=== PATIENT | male | born 1945 | race Caucasian/White ===

== ENCOUNTER 2016-07-30 00:50 | Inpatient (IN) | payer OTHER ==
--- NOTE | ~2016-07-30 | CN ---
Consultation Report [place] [id number] [facility] [place]. [address] NAME: KERI ODOM : [birth year] STATUS : ADM Shyla PAT#: [id number] AGE: 71 ADM/REG DATE : 07/30/16 MR#: [id number] REPORT SERV DATE: 07/30/16 DICTATED BY: DIEGO MONTGOMERY DATE: 07/30/16 REPORT STATUS : Draft TRANSCRIBED BY: MODEsther DATE: 07/30/16 CARDIOLOGY CONSULTATION DATE OF CONSULTATION: HISTORY OF PRESENT ILLNESS: The patient is a 71-year-old white male, with a history of coronary artery bypass surgery at [facility] greater than 10 years ago. The patient now presents with a history of unexplained onset of profound weakness and dizziness. He had associated shortness of breath, but states he also has COPD and has chronic shortness of breath. Troponin is 0.2. EKG shows sinus rhythm, with right bundle-branch block, and left anterior fascicular block, as well as nonspecific ST-T changes. PAST MEDICAL HISTORY: Remarkable for coronary artery disease with remote bypass surgery, essential hypertension, hyperlipidemia, COPD, and type 2 diabetes. SOCIAL HISTORY: The patient quit smoking 20 years ago. FAMILY HISTORY: Positive for coronary artery disease. REVIEW OF SYSTEMS: The patient has nonproductive cough. He denies nausea, vomiting, diarrhea, or dysuria. PHYSICAL EXAMINATION: GENERAL: Currently, the patient is comfortable, in no acute distress. HEENT: Unremarkable. NECK: Shows no jugular venous distention with good carotid upstroke. CHEST: Clear. CARDIOVASCULAR: The PMI is lateral to midclavicular line. S1 is normal. S2 is narrowly split. No gallop is present. ABDOMEN: Soft and nontender with normal bowel sounds. EXTREMITIES: Show no cyanosis, clubbing, or edema. SKIN: Warm and dry with no pallor or icterus. NEURO/PSYCH: The patient is oriented x3 with appropriate affect. LABORATORY DATA: Creatinine is 1.0, potassium 3.6, and hematocrit is 41.6. IMPRESSION: 1. Subendocardial myocardial infarction. 2. Essential hypertension. 3. Hyperlipidemia. 4. Chronic obstructive pulmonary disease. 5. Type 2 diabetes. RECOMMENDATION: Consultation Report [address] [place]. [address] NAME: KERI ODOM DOB: [birth year] STATUS : ADM Shyla PAT#: [id number] AGE: 71 ADM/REG DATE : 07/30/16 MR#: [id number] REPORT SERV DATE: 07/30/16 DICTATED BY: DIEGO MONTGOMERY DATE: 07/30/16 REPORT STATUS : Draft TRANSCRIBED BY: ANDRE DATE: 07/30/16 1. Continue present medications. 2. Plan cardiac catheterization tomorrow per Dr. Null. Thank you very much for this consultation. SARAH/ANDRE Diego Montgomery M.D., F.A.C.C. / [id number] CC: Mike Cardenas MIRANDA SWAFFORD Steven Austin, M.D., [facility]
--- NOTE | ~2016-07-30 | CN ---
Consultation Report [facility] [address] [place]. [address] NAME: KERI ODOM : [birth year] STATUS : ADM Shyla PAT#: [id number] AGE: 71 ADM/REG DATE : 07/30/16 MR#: [id number] REPORT SERV DATE: 07/30/16 DICTATED BY: DATE: REPORT STATUS : Draft TRANSCRIBED BY: MODL DATE: 07/30/16 NEUROLOGY CONSULTATION DATE OF CONSULTATION: 07/30/2016 REASON FOR CONSULTATION: Possible stroke. HISTORY OF PRESENT ILLNESS: This is a 71-year-old male who presented to [facility] as a transfer from [facility] secondary to vertigo symptoms. The patient's symptoms started on 07/29/2016 in the evening. There is a concern for acute ischemic stroke. As a result, the patient was transferred to [facility]. The patient described the symptom as unsteady. The patient reports difficulty moving bilateral lower extremities with bilateral lower extremity weakness. The patient denies any numbness and denies any diplopia. Denies any blurry vision and denies any dysarthria, dysphagia, or language difficulties. The patient denies similar symptoms in the past. Reports a mild headache, but not severe. The patient otherwise reports the symptoms resolved after several hours, shortly after morphine for pain. The patient denies any current symptom right now and denies any vertigo-type of symptoms and denies any lightheadedness prior to the hospitalization. The patient was noted to have chronic COPD with chronic cough that was steadily progressive, the patient recently about a week ago being prescribed with steroid as well as antibiotic. No recent fever, chills, nausea, vomiting, chest pain. Worsening shortness of breath was noted over the past two to four weeks. The patient denies any other symptoms or other changes in medication. PAST MEDICAL HISTORY: Significant for COPD, does not require home oxygen, as well as history of hypertension, hyperlipidemia. The patient at baseline was taking cholesterol medication, the name of it was unclear. The patient does have type 2 diabetes, non-insulin dependent; as well as coronary artery disease, status post previous coronary artery bypass surgery; and gastroesophageal reflux disease. REVIEW OF SYSTEMS: Negative, except for those mentioned in the HPI. ALLERGIES: THE PATIENT REPORTS ALLERGY TO CODEINE. SOCIAL HISTORY: The patient reports tobacco usage, but quit many, many years ago. Denies current alcohol usage and denies illicit drug usage. HOME MEDICATIONS: Consist of ProAir, Proventil, aspirin, Coreg, Cardura, Atrovent, lisinopril, Mobic, Singulair, Prilosec. The patient does take simvastatin at home. FAMILY HISTORY: At the time of evaluation, family history is significant for coronary artery disease as well as diabetes. Consultation Report [address] [place]. [address] NAME: KERI ODOM : [birth year] STATUS : ADM Shyla PAT#: [id number] AGE: 71 ADM/REG DATE : 07/30/16 MR#: [id number] REPORT SERV DATE: 07/30/16 DICTATED BY: DATE: REPORT STATUS : Draft TRANSCRIBED BY: ANDRE DATE: 07/30/16 PHYSICAL EXAMINATION: VITAL SIGNS: Overnight, the patient was noted to have vital signs with T-max of 98.2, heart rate of 69 to 79, respirations of 16 to 18, and blood pressure of 152 to 153 over 74 to 75. GENERAL: The patient is well developed, well nourished, in no acute distress. CARDIOVASCULAR: Regular rate and rhythm. No carotid bruits were otherwise auscultated. PULMONARY: Clear to auscultation bilaterally. NEUROLOGIC: Generally, the patient is alert, oriented to person, place, year, and month. Follows simple and two-step commands. No dysarthria. No aphasia. Intact registration and recall. Cranial nerves II through XII. Pupils equal, round, and reactive to light. Extraocular eye movement was noted to be intact. No nystagmus was seen. The patient denies diplopia with extraocular eye movement. Denies vertical sensation with eye movement. Decrease in hearing in bilateral ears was otherwise noted. The patient denies tinnitus. The patient was noted to have symmetrical facial sensation. Midline tongue. Normal palatal movement. Symmetrical facial expression. 5/5 bilateral upper and lower extremity strength. No pronator drift was noted. Normal qptizd-fy-nhdc examination without ataxia. Symmetrical sensation. Deep tendon reflex was 2+ throughout. Downgoing toes on bilateral plantar reflexes. Normal station, normal gait at the time of evaluation. LABORATORY STUDIES: Demonstrated INR of 1.1. Cholesterol of 120, HDL of 37, LDL of 57, triglycerides of 130. Hemoglobin A1c of 7.2. Free T4 of 1.12. Serum TSH of 2.02. MRI of the brain otherwise demonstrated no acute process. MRA of the head and neck demonstrated no significant carotid stenosis. IMPRESSION: Vertigo symptoms, resolved after several hours. MRI of the brain otherwise demonstrated no acute events. NIH Stroke Scale is currently zero. Concern for possible transient ischemic attack. We will continue aspirin. We will change the simvastatin to Lipitor 80 mg p.o. at bedtime. Echocardiogram is otherwise pending. No PT/OT secondary to no motor deficit. RECOMMENDATIONS: 1. Change the simvastatin to Lipitor 80 mg p.o. at bedtime. 2. Continue aspirin for now. 3. Echocardiogram pending. 4. No PT/OT secondary to minimal motor deficits. [facility]/MODL Cholo Gordon MD / [id number] Consultation Report [address] [address] NAME: KERI ODOM : [birth year] STATUS : ADM Shyla PAT#: [id number] AGE: 71 ADM/REG DATE : 07/30/16 MR#: [id number] REPORT SERV DATE: 07/30/16 DICTATED BY: DATE: REPORT STATUS : Draft TRANSCRIBED BY: MODL DATE: 07/30/16 CC: Mike Cardenas MIRANDA SWAFFORD
--- NOTE | ~2016-07-30 | OP ---
Record Of Operation [facility] [address] [place]. [address] NAME: KERI ODOM : 47 STATUS : ADM Shyla PAT#: [id number] AGE: 71 ADM/REG DATE : 07/30/16 MR#: [id number] REPORT SERV DATE: 07/31/16 DICTATED BY: DIEGO PORTILLO DATE: 07/31/16 REPORT STATUS : Draft TRANSCRIBED BY: MODL DATE: 07/31/16 DATE OF PROCEDURE: 07/31/2016 CARDIAC CATHETERIZATION REPORT INDICATION: History of previous bypass with elevated cardiac enzymes consistent with non-ST- segment elevation myocardial infarction. PROCEDURE: Left heart catheterization, coronary arteriography, left ventriculography, saphenous vein graft arteriography, left internal mammary arteriography. DESCRIPTION OF PROCEDURE: After informed consent was obtained, the patient was taken in a fasting state to the cardiac catheterization laboratory where he was prepped and draped in a sterile fashion. Conscious sedation was obtained using intravenous versed and fentanyl. The right inguinal region was anesthetized using 1% Xylocaine. The right femoral artery was then entered using a front wall approach and cannulated with a 6-Ivorian arterial sheath. A 6-Ivorian JR4 diagnostic catheter and a 6-Ivorian internal mammary artery catheter was used to engage the 3 saphenous vein grafts, the left internal mammary artery, and the mcgrath right coronary artery. Serial angiograms of each of these vessels were obtained. This catheter was then exchanged for a 6-Ivorian JL4 catheter which was used to engage the left main coronary artery. Serial angiograms of this vessel were obtained. This catheter was then exchanged for a 6-Ivorian angled pigtail catheter which was used across the aortic valve at which time a left ventriculogram was performed. The catheter was then withdrawn back across the aortic valve with no significant aortic transvalvular gradient. Results of the study are as follows: HEMODYNAMICS: Left ventricle 182/8 with end-diastolic pressure of 16 mmHg. Left ventricle 180/73 with mean pressure 112 mmHg. CORONARY ANATOMY: 1. Left Main coronary artery: The left main coronary artery arises normally from the left coronary cusp. This vessel is normal. 2. Left anterior descending artery: The left anterior descending artery arises normally from the left main coronary artery. This vessel is 100% occluded proximally. 3. The left internal mammary artery to the mid LAD is widely patent with CESAR-3 grade flow. 4. Ramus intermedius: The ramus intermedius arises normally from the left main coronary artery. This is a medium caliber vessel which has luminal irregularities to 20%. 5. Left circumflex artery: The left circumflex artery arises normally from the left main coronary artery. This vessel is 100% occluded after the takeoff of a small first obtuse marginal branch which is diffusely diseased to 50%. 6. The saphenous vein graft to the first obtuse marginal artery is occluded. 7. The saphenous vein graft to the third obtuse marginal artery is widely patent. 8. Right coronary artery: The right coronary artery arises normally from the right coronary cusp. This vessel was severely and diffusely diseased to 80%. 9. The saphenous vein graft to the posterior descending artery is widely patent. This Record Of Operation [facility] [address] [place]. [address] NAME: KERI ODOM : 47 STATUS : ADM Shyla PAT#: [id number] AGE: 71 ADM/REG DATE : 07/30/16 MR#: [id number] REPORT SERV DATE: 07/31/16 DICTATED BY: DIEGO PORTILLO DATE: 07/31/16 REPORT STATUS : Draft TRANSCRIBED BY: MODL DATE: 07/31/16 graft also fills the posterolateral artery. LEFT VENTRICULOGRAM: Left ventriculogram was performed which shows normal symmetric left ventricular contractility and an ejection fraction of 55% to 60%. There is mild mitral insufficiency. COMPLICATIONS: There were no apparent complications. CONCLUSIONS: 1. Severe mcgrath vessel coronary artery disease described above. 2. Widely patent saphenous vein graft to posterior descending artery-also fills posterolateral artery. 3. Saphenous vein graft to obtuse marginal artery (third) widely patent. 4. Saphenous vein graft to first obtuse marginal artery occluded. 5. ERWIN to mid LAD widely patent. 6. Preserved left ventricular systolic function. Mild mitral insufficiency. 7. No apparent complications. 8. Plans made for continued medical management including increase of Coreg followed by increased lisinopril as needed. SA/MODL Diego Portillo M.D., [facility] / [id number] CC: MD ANTOINE Ya II
--- NOTE | ~2016-07-30 | HP ---
History And Physical [place] [id number] [facility] [place]. [address] NAME: KERI PANTOJA SR : 47 STATUS : ADM Shyla PAT#: [id number] AGE: 71 ADM/REG DATE : 07/30/16 MR#: [id number] REPORT SERV DATE: 07/30/16 DICTATED BY: KELLY MARTINEZ DATE: 07/30/16 REPORT STATUS : Draft TRANSCRIBED BY: MODEsther DATE: 07/30/16 DATE OF ADMISSION: 07/30/2016 POINT OF ENTRY: Transferred from [facility] Emergency Department. PRIMARY CARE PHYSICIAN: Ginette Jade APN. PRIMARY SHOVEL MECHANIC: Diego Null M.D., [facility]. CHIEF COMPLAINT: Dizziness. HISTORY OF PRESENT ILLNESS: Mr. Pantoja is a 71-year-old gentleman with history of hypertension, hyperlipidemia, COPD as well as rtu-boppuio-uhknhxmmt diabetes mellitus type 2, who presents to the emergency department with reports of acute onset of dizziness and feeling unsteady on his feet. The patient states he has been in his usual state of health until about 6:00 p.m. Sunday evening, when while lying in his bed he developed the acute onset of dizziness. When asked to describe his dizziness, he states that he felt unsteady with some spinning sensation. He denies any associated nausea, vomiting, or vision changes or headache. When he got up to use the restroom he again fell unsteady on his feet and was stumbling around as if he were "drunk." He denied any recent hearing loss, tinnitus, or ear pressure. Denies any prior history of vertigo type symptoms. Denies any focal weakness, numbness, tingling, or other neurologic complaints. Initial evaluation in the emergency department was notable for a CT scan of the brain that was unremarkable. EKG shows a right bundle branch block, I do not have any prior for comparison. Labs notable for a sugar of 236, as well as a troponin of 0.20, and his blood pressure was mildly elevated between the 160s to 180s. The patient was subsequently transferred to [facility] for higher level of care. While at [facility] Emergency Department, he did complain of a headache that has since resolved, but he did get some morphine in the ER. The patient now states that his sensation of dizziness and feeling unsteady has significantly improved, and is now only noticeable with significant movement or ambulation. REVIEW OF SYSTEMS: Comprehensive review of system otherwise negative unless listed in history of present illness. Specifically, he denies any chest pain, chest pressure, shortness of breath, abdominal pain, nausea, vomiting, diarrhea, constipation, dysuria, lower extremity edema, melena, hematochezia, hemoptysis, or hematemesis. PREVIOUS MEDICAL HISTORY: 1. Hypertension. 2. Hyperlipidemia. History And Physical [address] [address] NAME: KERI PANTOJA SR : 47 STATUS : ADM Shyla PAT#: [id number] AGE: 71 ADM/REG DATE : 07/30/16 MR#: [id number] REPORT SERV DATE: 07/30/16 DICTATED BY: KELLY MARTINEZ DATE: 07/30/16 REPORT STATUS : Draft TRANSCRIBED BY: ANDRE DATE: 07/30/16 3. COPD, not on home oxygen. 4. Gastroesophageal reflux disease. 5. Coronary artery disease with prior coronary artery bypass grafting. 6. Enm-pdldjtk-imeqdjbka diabetes mellitus type 2. PAST SURGICAL HISTORY: 1. Cholecystectomy. 2. Coronary artery bypass grafting. 3. PCI. ALLERGIES: TO CODEINE. HOME MEDICATIONS: Pending at the time of dictation. SOCIAL HISTORY: He is a former smoker, quit about 20 years ago. Denies any alcohol or illicits. FAMILY MEDICAL HISTORY: Mother and father both with coronary artery disease. Siblings with diabetes and coronary artery disease. LABS AND IMAGING: All obtained from transfer records from [facility] Emergency Department. 1. White count is 8.2, hemoglobin is 13.8, hematocrit is 41.6, platelet count is 191, and INR 1.0. 2. Sodium is 139, potassium 3.6, chloride 98, carbon dioxide 33, BUN 30, creatinine 1.0, glucose is 236, calcium is 9.7, protein is 7.2, albumin is 4.3, bilirubin is 0.8, ALT is 30, AST 19, and alkaline phosphatase is 54. 3. Troponin 0.02. 4. CT scan of the brain shows no acute intracranial abnormality. Does show some age- appropriate changes. 5. EKG per my review shows normal sinus rhythm with a right bundle-branch block as well as a left anterior fascicular block, but no evidence of any acute ischemia or infarction. 6. Urine drug screen is negative. 7. Urinalysis: Spec gravity is 1.020 with no evidence of any infection. PHYSICAL EXAMINATION: VITAL SIGNS: Temperature is 96.8 degrees Fahrenheit, pulse is 69, respirations 18, saturating 98% on room air, and blood pressure is 185/88. GENERAL: The patient is awake and alert, in no acute distress. Resting comfortably in bed. He is a well-developed, well-nourished, elderly male. HEENT: Atraumatic and normocephalic. Moist mucous membranes. Pupils are equal, round, reactive to light and accommodation. Extraocular eye movements intact. No scleral icterus. NECK: No jugular venous distention. No carotid bruits. CARDIAC: Regular rate and rhythm. Does have a 2/6 systolic murmur best heard over the left lower sternal border. LUNGS: Clear to auscultation bilaterally. No wheezes, rhonchi, or crackles. Does have some prolonged respiratory phase as well as decreased breath sounds at bases. History And Physical [address] [address] NAME: KERI PANTOJA : 47 STATUS : ADM Shyla PAT#: [id number] AGE: 71 ADM/REG DATE : 07/30/16 MR#: [id number] REPORT SERV DATE: 07/30/16 DICTATED BY: KELLY MARTINEZ DATE: 07/30/16 REPORT STATUS : Draft TRANSCRIBED BY: ANDRE DATE: 07/30/16 ABDOMEN: Obese, soft, nontender, and nondistended with good bowel sounds. No rebound, guarding, or rigidity. EXTREMITIES: Warm and perfused. No cyanosis, clubbing, or edema. SKIN: Warm and dry. PSYCH: Affect appropriate. NEURO: Alert and oriented x3. Cranial nerves 2 through 12 grossly intact. Speech is normal. Gait is not assessed. Strength is 5/5 in bilateral upper and lower extremity. Cerebellar function intact with kgznlp-krlp-labugh and kcnr-xj-oxjg that was tested. The patient did have some worsening of his dizziness as well as some possible lateral beating nystagmus with lateral gaze deviation. ASSESSMENT AND PLAN: Mr. Pantoja is a 71-year-old gentleman with a history of diabetes, hypertension, coronary artery disease, who presents with acute onset of dizziness, ataxia, and disequilibrium concerning for possible acute cerebrovascular accident versus vertigo. PROBLEM LIST: 1. Dizziness with ataxia and disequilibrium concerning for possible vertigo versus acute CVA. 2. Elevated troponin level. 3. Qcn-bckrsio-wwvdapdvy diabetes mellitus 2 with hyperglycemia. 4. Dehydration. 5. Hypertension. 6. History of coronary artery disease. PLAN: 1. Possible acute stroke versus vertigo. CT scan of the brain was unremarkable. We will admit the patient to the Hospitalist Service per Neurology consultation as well as MRI/MRA in the morning. The patient states that his symptoms are going to improve now, so we will also order some p.r.n. meclizine to see if this helps should his symptoms return. We will place the patient on aspirin as well as statin and have Physical Therapy evaluate the patient given his reports of ataxia and disequilibrium. 2. Elevated troponin value. The patient denies any chest pain, or other anginal equivalents. EKG is nonischemic. He does have a right bundle branch block, we do not have any prior for comparison. We will try to obtain records from Dr. Null's office for comparison as well as trend out cardiac enzymes. 3. Wfi-fpqsphq-fjsvicorn diabetes mellitus 2 with hyperglycemia. Check hemoglobin A1c. Place on level 2 insulin sliding scale. 4. Hypertension. We will allow for some permissive hypertension at least overnight pending further evaluation for possible stroke. 5. History of chronic obstructive pulmonary disease. I do not appreciate any evidence of acute exacerbation at this time. We will continue to monitor. 6. DVT prophylaxis. Lovenox subcu. CODE STATUS: The patient wished to be full code. History And Physical [address] [address] NAME: KERI PANTOJA SR : 47 STATUS : ADM Shyla PAT#: [id number] AGE: 71 ADM/REG DATE : 07/30/16 MR#: [id number] REPORT SERV DATE: 07/30/16 DICTATED BY: KELLY MARTINEZ DATE: 07/30/16 REPORT STATUS : Draft TRANSCRIBED BY: ANDRE DATE: 07/30/16 JOBY/ANDRE Kelly Martinez MD / [id number] CC: Satish Acevedo M.D.
--- NOTE | ~2016-07-30 | DS ---
Discharge Summary [facility] [address] [place]. [address] NAME: KERI ODOM : 47 STATUS : DIS IN PAT#: [id number] AGE: 71 ADM/REG DATE : 07/30/16 MR#: [id number] REPORT SERV DATE: 08/02/16 DICTATED BY: KEANU ALDRICH DATE: 08/01/16 REPORT STATUS : Draft TRANSCRIBED BY: MODEsther DATE: 08/01/16 ADMISSION DATE: 07/30/2016 DISCHARGE DATE: 08/01/2016 REASON FOR ADMISSION: This is a 71-year-old male who had come in with a chief complaint of dizziness. In the emergency room, he was noted to have an elevated troponin of 0.20. DISCHARGE DIAGNOSES: 1. Vertigo, resolved, possible transient ischemic attack. 2. Atg-OQ-ochwahkvw myocardial infarction. 3. Multivessel coronary artery disease. 4. Diabetes type 2. 5. Hypertension. HOSPITAL COURSE: 1. Vertigo. The patient had come in with complaints of vertigo, coming into the hospital and then had also been found in the ER to have an elevated troponin level. The patient would have an echocardiogram performed which would show mild mitral insufficiency, aortic valve sclerosis, but no stenosis, left ventricular ejection fraction of 55% to 60%, and normal diastolic function. Due to the patient's elevated troponin levels which would trend up to 0.39, would have a cardiac cath performed by Dr. Null, had severe grayling vessel coronary artery disease, widely patent saphenous vein graft to posterior descending artery, also fills posterolateral artery, saphenous vein graft to obtuse marginal artery widely patent, saphenous vein graft to first obtuse marginal artery occluded, ERWIN to mid LAD widely patent, preserved LVEF mild mitral insufficiency, no apparent complications and recommendations for continuing medical management with increase of Coreg. The patient would also have brain imaging performed to rule out CVA. 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 He has had MRI and MRA of brain and neck. Neurology following the patient felt like as his symptoms resolved was possibly had a TIA and given his cardiac risk, started him on Plavix and wished for him to remain on Plavix, statin, and an aspirin leaving the hospital. DISCHARGE CONDITION: Stable. DISCHARGE MEDICATIONS: 1. Albuterol 2.5 mg inhaled four times a day. 2. Coreg 12.5 mg p.o. b.i.d. 3. Cardura 1 mg p.o. daily. 4. HCTZ 12.5 mg p.o. daily. 5. Lipitor 80 mg p.o. q.h.s. 6. Aspirin 81 mg p.o. daily. 7. Mobic 7.5 mg p.o. daily. 8. Omeprazole 20 mg p.o. daily. Discharge Summary [place] [id number] [facility] [place]. [address] NAME: KERI ODOM : 47 STATUS : DIS IN PAT#: [id number] AGE: 71 ADM/REG DATE : 07/30/16 MR#: [id number] REPORT SERV DATE: 08/02/16 DICTATED BY: KEANU ALDRICH DATE: 08/01/16 REPORT STATUS : Draft TRANSCRIBED BY: ANDRE DATE: 08/01/16 9. Singulair 10 mg p.o. daily. 10.Plavix 75 mg p.o. daily. 11.Lisinopril 40 mg p.o. daily. 12.Klonopin p.r.n. for systolic blood pressure greater than 160, diastolic greater than 90. DISCHARGE PLAN: The patient will be discharged home. Follow up with primary care, Ginette Jade, in one to two weeks [address] Dr. Null, Cardiology, in three to four weeks. DICTATED BY: FAMILIA Priest/ANDRE Keanu Aldrich APN / [id number] CC: Lc Marie M.D. MILAGROS,MD Diego Bobo M.D., [facility]
[2016-07-30] MEDS ORDERED: CEFT5 PO (03:45)
[2016-07-30] MEDS ORDERED: ALBUTEROL5 INH (03:55)
[2016-07-30] MEDS ORDERED: PROAIR HFA INH (03:58)
[2016-07-30] MEDS ORDERED: ATROVENTUD INH (04:01)
[2016-07-30] MEDS ORDERED: COREG12 PO (04:03)
[2016-07-30] MEDS ORDERED: CARDURA1 MG PO (04:04)
[2016-07-30] MEDS ORDERED: HYDROCHLOROT12.5 MG PO (04:07)
[2016-07-30] MEDS ORDERED: LIPITOR80 MG PO (04:08)
[2016-07-30] MEDS ORDERED: ASAB PO (04:09)
[2016-07-30] MEDS ORDERED: MOBIC7.5 PO (04:10)
[2016-07-30] MEDS ORDERED: PRILO PO (04:11)
[2016-07-30] MEDS ORDERED: SINGULAIR1 PO (04:12)
[2016-07-30 05:08] LABS: CPK 66 U/L (0-200)
[2016-07-30 05:09] LABS: TROPONIN I 0.39 NG/ML (<0.05)
[2016-07-30 06:49] LABS: INTERNATIONAL NORMAL RATI 1.1 UNITS (-); PARTIAL THROMBO TIME 26.9 SEC (22.5-37.2); PROTIME (NOT ORD) 13.8 SEC (12.0-14.5)
[2016-07-30 06:57] LABS: CHOL/HDL RATIO(NOT ORDER) 3.2 (0-5); CHOLESTEROL 120 MG/DL (< 200); FREE T4 1.12 NG/DL (0.76-1.46); HDL CHOLESTEROL 37 MG/DL (> 39); LDL CHOLESTEROL 57 MG/DL (< 130); NON-HDL CHOLESTEROL 83 MG/DL (< 160); TRIGLYCERIDE 130 MG/DL (< 150)
[2016-07-30 21:04] LABS: CK-MB 1.5 NG/ML; CPK 45 U/L (0-200); TROPONIN I 0.21 NG/ML (<0.05)
[2016-07-31 05:42] LABS: BASOPHILS 0.4 %; BASOPHILS ABSOLUTE 0.03 10/3/uL (0.0-0.16); EOSINOPHILS 3.8 %; EOSINOPHILS ABSOLUTE 0.26 10/3/uL (0.0-0.53); HEMATOCRIT 38.9 % (40.0-51.0); HEMOGLOBIN 13.1 g/dL (13.6-17.8); IMMATURE GRANULOCYTES 1.2 %; IMMATURE GRANULOCYTES ABSOLUTE 0.08 10/3/uL (0.0-0.11); LYMPHOCYTES 13.6 %; LYMPHOCYTES ABSOLUTE 0.92 10/3/uL (0.67-4.30); MANUAL DIFF NO %; MEAN CORPUS HGB CONC 33.7 g/dL (32.0-36.0); MEAN CORPUSCULAR HEMOGLOB 27.1 pg (26.0-34.0); MEAN CORPUSCULAR VOLUME 80.4 fL (80-100); MEAN PLATELET VOLUME 9.9 fL (9.2-13.0); MONOCYTES ABSOLUTE 0.27 10/3/uL (0.21-1.20); NEUTROPHILS ABSOLUTE 5.22 10/3/uL (2.02-8.40); PLATELET COUNT 136 10/3/uL (150-400); RBC DISTRIBUTION WIDTH 14.2 % (12.0-16.0); RED CELL COUNT 4.84 10/6/uL (4.7-6.1); WHITE BLOOD CELLS 6.8 10/3/uL (4.5-10.5)
[2016-07-31 05:56] LABS: BUN (BLOOD UREA NITROGEN) 20 MG/DL (6-23); CALCIUM, SERUM 9.4 MG/DL (8.5-10.4); CHLORIDE, SERUM 102 MMOL/L (96-112); CHOL/HDL RATIO(NOT ORDER) 3.2 (0-5); CHOLESTEROL 109 MG/DL (< 200); CO2 (CARBON DIOXIDE) 31 MMOL/L (24-34); CREATININE 0.85 MG/DL (0.70-1.30); GFR AFRICAN AMERICAN 102 ML/MIN (>=60); GFR NON AFRICAN AMERICAN 88 ML/MIN (>=60); GLUCOSE, SERUM 148 MG/DL (60-99); HDL CHOLESTEROL 34 MG/DL (> 39); LDL CHOLESTEROL 39 MG/DL (< 130); NON-HDL CHOLESTEROL 75 MG/DL (< 160); POTASSIUM, SERUM 3.3 MMOL/L (3.5-5.3); SODIUM, SERUM 136 MMOL/L (135-148)
[2016-07-31 05:58] LABS: TRIGLYCERIDE 180 MG/DL (< 150)
[2016-08-01] MEDS ORDERED: PLAVIX PO (14:14)
[2016-08-01] MEDS ORDERED: ZESTRIL40 MG PO (14:16)
[2016-08-01] MEDS ORDERED: CAT1 PO ×2 (14:21→14:24)
== END 2016-08-01 14:46 | disposition home or self-care (01) | DRG 282 ==
LOC: 1SO 00:50
PROVIDERS: Internal Medicine; Internal Medicine Interventional Cardiology
PROC: 4A023N7 Measurement of Cardiac Sampling and Pressure, Left Heart, Percutaneous Approach (ICD-10-PCS; principal; 2016-07-30)
PROC: B2181ZZ Fluoroscopy of Left Internal Mammary Bypass Graft using Low Osmolar Contrast (ICD-10-PCS; 2016-07-30)
PROC: B2151ZZ Fluoroscopy of Left Heart using Low Osmolar Contrast (ICD-10-PCS; 2016-07-30)
PROC: B2101ZZ Fluoroscopy of Single Coronary Artery using Low Osmolar Contrast (ICD-10-PCS; 2016-07-30)
DX: I21.4 Non-ST elevation (NSTEMI) myocardial infarction (principal); J44.9 Chronic obstructive pulmonary disease, unspecified; E11.9 Type 2 diabetes mellitus without complications; I25.10 Atherosclerotic heart disease of native coronary artery without angina pectoris; I10 Essential (primary) hypertension; E78.5 Hyperlipidemia, unspecified
CPT/HCPCS: 70544; 70547; 70551-52; 71020; 80048; 80061; 82550; 82553; 82962; 83036; 83735; 84132; 84439; 84443; 84484; 85025; 85610; 85730; 93005; 93459; 94640; 99152; 99153; A9270-GY; C1769; C1894; C8929; J0360; J2250; J3010; Q9957; Q9967